=== PATIENT | female | born 1985 | race Caucasian/White ===

== ENCOUNTER 2021-04-15 19:35 | Emergency (ER) | payer BC ==
[~2021-04-15] VITALS: Ht 154.9 cm; Wt 86.2 kg
--- NOTE | 2021-04-15 20:06 | NUR ---
calledf for us and ct
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
--- NOTE | 2021-04-15 20:13 | NUR ---
Pt refused HcG test due to tubal ligation hx.
--- NOTE | 2021-04-15 20:25 | NUR ---
pt taken to ct
--- NOTE | 2021-04-15 20:52 | NUR ---
US at bedside
--- NOTE | 2021-04-15 22:00 | NUR ---
pt. refused sling
[2021-04-15] MEDS ORDERED: IBUP-1955 PO (22:02)
--- NOTE | 2021-04-15 22:53 | NUR ---
Patient discharged to home in stable condition. Written and verbal after care instructions given. Patient verbalizes understanding of instructions. Stressed follow up or return to ER for worsening s/s. Pt. picked up by friend.
[2021-04-16 00:14] VITALS: BP 122/98
== END 2021-04-15 22:11 | disposition home or self-care (01) ==
LOC: ER 19:35
DX: R53.1 Weakness (principal); R22.32 Localized swelling, mass and lump, left upper limb; F11.10 Opioid abuse, uncomplicated; Z91.5 Personal history of self-harm; Z88.2 Allergy status to sulfonamides; F31.9 Bipolar disorder, unspecified
CPT/HCPCS: 70450; 72125; 73030; 73130; A4663